=== PATIENT | female | born 1930 | race African-American/Black ===

== ENCOUNTER 2016-09-11 04:57 | Inpatient (IN) | payer MEDICARE, BC ==
[~2016-09-11] VITALS: Ht 157.5 cm; Wt 74.6 kg
[~2016-09-11 04:57] MED LIST: ACET-48 PO; AZIL1TAB3 PO; CARV40CR PO; DICL2100G TP; EZET10 PO; GABA300T26 PO; LEVO100T4 PO; ROSI4TAB28 PO; TAPE50TA9 PO; VITAMIN D PO; [UNRECOGNIZED DRUG - CODE] IV
[2016-09-11 05:22] LABS: GLUCOSE,POINT OF CARE 128 MG/DL (70-110)
[2016-09-11 05:56] LABS: BASOPHILS % (AUTO) 0.2 % (0.0-2.0); EOSINOPHILS % (AUTO) 1.1 % (1.0-6.0); HEMATOCRIT 27.5 % (36-46); HEMOGLOBIN 8.9 g/dL (12.0-16.0); LYMPHOCYTES # (AUTO) 1.3 K/uL (1.0-4.8); LYMPHOCYTES % (AUTO) 12.5 % (22.0-44.0); MEAN CORPUSCULAR HEMOGLOBIN 31.5 pg (26.0-34.0); MEAN CORPUSCULAR HGB CONC 32.4 G/dL (31.0-37.0); MEAN CORPUSCULAR VOLUME 97 fL (80-100); MONOCYTES # (AUTO) 0.7 K/uL (0.1-1.0); MONOCYTES % (AUTO) 6.8 % (2.0-9.0); NEUTROPHILS % (AUTO) 79.4 % (40.0-70.0); PLATELET COUNT (AUTO) 128 K/uL (150-450); RED BLOOD CELL COUNT(AUTO) 2.84 MIL/uL (4.00-5.20); RED CELL DISTRIBUTION WIDTH 16.7 % (11.5-14.5); WHITE BLOOD COUNT (AUTO) 10.1 K/uL (4.5-11.0)
[2016-09-11 06:01] LABS: ANION GAP 5 mmol/L (8-16); CALCIUM, TOTAL 8.5 mg/dL (8.8-10.5); CARBON DIOXIDE 30 mmol/L (22-29); CHLORIDE 108 mmol/L (98-107); GLOMERULAR FILTR. RATE CALC 37 mL/min (>60); POTASSIUM 4.8 mmol/L (3.5-5.1); SODIUM SERUM 143 mmol/L (136-145); UREA NITROGEN, BLOOD 26 mg/dL (7-18)
[2016-09-11 06:25] LABS: B-TYPE NATRIURETIC PEPTIDE 836 pg/mL (0-100)
[2016-09-11 06:26] LABS: ALANINE AMINOTRANSFERASE 24 U/L (12-78); ALBUMIN 3.1 g/dL (3.4-5.0); ASPARTATE AMINOTRANSFERASE 32 U/L (15-37); BILIRUBIN,TOTAL 0.4 mg/dL (0.1-1.0); CREATINE KINASE, TOTAL 136 U/L (26-192); TOTAL PROTEIN, SERUM 6.3 g/dL (6.4-8.2)
[2016-09-11] MEDS ORDERED: FUROSEMIDE 40 MG/4 ML VIAL IVP ONE (06:45)
[2016-09-11 08:01] LABS: INFLUENZA TYPE B NEGATIVE FOR TYPE B (NEGATIVE)
[2016-09-11] MEDS ORDERED: ACETAMINOPHEN 325 MG TABLET PO PRN ×2 (08:15→22:15)
[2016-09-11] MEDS ORDERED: ONDANSETRON HCL 4 MG/2 ML VIAL IVP PRN ×2 (08:15→22:15)
[2016-09-11] MEDS ORDERED: VITAD5000 PO (12:13)
[2016-09-11 12:26] VITALS: BP 186/79
[2016-09-11 12:37] LABS: GLUCOSE,POINT OF CARE 96 MG/DL (70-110)
[2016-09-11] MEDS ORDERED: IPRATROPIUM BROMIDE 0.5 MG/2.5 ML NEB SOLUTION NEB PRN ×2 (13:45→14:00)
[2016-09-11] MEDS ORDERED: ALBUTEROL SULFATE 2.5 MG/0.5 ML NEB SOLUTION NEB PRN ×3 (13:45→22:15)
[2016-09-11] MEDS: ALBUTEROL SULFATE 2.5 MG/0.5 ML NEB SOLUTION NEB SCH ×2 (15:18→19:42)
[2016-09-11] MEDS: IPRATROPIUM BROMIDE 0.5 MG/2.5 ML NEB SOLUTION NEB SCH ×2 (15:18→19:42)
[2016-09-11 16:15] VITALS: BP 174/61
[2016-09-11 16:54] VITALS: BP 171/61
[2016-09-11 17:18] VITALS: BP 172/83
[2016-09-11 19:24] VITALS: BP 158/60
[2016-09-11] MEDS ORDERED: ZOLPIDEM TARTRATE 5 MG TABLET PO PRN (22:15)
[2016-09-11] MEDS ORDERED: BISACODYL 10 MG RECTAL RECTAL SUPPOSITORY PR PRN (22:15)
[2016-09-11] MEDS ORDERED: MAGNESIUM HYDROXIDE SUSPENSION 30 ML UDCUP PO PRN (22:15)
[2016-09-11 23:07] LABS: GLUCOSE,POINT OF CARE 115 MG/DL (70-110)
[2016-09-11 23:35] VITALS: BP 142/48
[2016-09-12] MEDS: FUROSEMIDE 40 MG/4 ML VIAL IVP SCH ×2 (00:09→08:37)
[2016-09-12] MEDS: HEPARIN SODIUM,PORCINE 5,000 UNITS/ML VIAL SQ SCH ×4 (00:09→23:26)
[2016-09-12] MEDS: IPRATROPIUM BROMIDE 0.5 MG/2.5 ML NEB SOLUTION NEB SCH ×4 (02:15→19:28)
[2016-09-12] MEDS: ALBUTEROL SULFATE 2.5 MG/0.5 ML NEB SOLUTION NEB SCH ×2 (02:15→08:10)
[2016-09-12 04:51] VITALS: BP 160/56
[2016-09-12 05:13] LABS: CALCIUM, TOTAL 8.4 mg/dL (8.8-10.5); CREATININE 1.7 mg/dL (0.60-1.30); POTASSIUM 3.7 mmol/L (3.5-5.1)
[2016-09-12] MEDS: LEVOTHYROXINE SODIUM 100 MCG TABLET PO SCH (06:28)
[2016-09-12 07:29] VITALS: BP 158/60
[2016-09-12] MEDS: EZETIMIBE 10 MG TABLET PO SCH (08:37)
[2016-09-12] MEDS: CARVEDILOL PHOSPHATE 40 MG CR CAPSULE PO SCH (08:37)
[2016-09-12] MEDS: PANTOPRAZOLE SODIUM 40 MG DR TABLET PO SCH (08:37)
[2016-09-12] MEDS: DOCUSATE SODIUM 100 MG CAPSULE PO SCH ×2 (08:37→20:03)
[2016-09-12] MEDS: CHOLECALCIFEROL (VIT D3) 5,000 UNITS CAPSULE PO SCH (08:37)
[2016-09-12] MEDS ORDERED: [UNRECOGNIZED DRUG - OTHER] PO SCH (09:00)
[2016-09-12] MEDS ORDERED: [UNRECOGNIZED DRUG - OTHER] PO SCH (09:00)
[2016-09-12 11:40] VITALS: BP 126/51
[2016-09-12] MEDS ORDERED: INSULIN ASPART 100 UNITS/ML SQ PRN (12:30)
[2016-09-12] MEDS ORDERED: DEXTROSE 50%-WATER 25 GM/50 ML SYRINGE IVP PRN (12:30)
[2016-09-12 14:48] VITALS: BP 129/70
[2016-09-12 19:22] VITALS: BP 148/54
[2016-09-12 19:27] LABS: GLUCOSE,POINT OF CARE 97 MG/DL (70-110)
[2016-09-12 19:31] LABS: GLUCOSE,POINT OF CARE 95 MG/DL (70-110)
[2016-09-12] MEDS ORDERED: PITAVASTATIN CALCIUM 2 MG PO SCH (21:00)
[2016-09-13] VITALS (8 sets, daily range): BP systolic 116–168; BP diastolic 45–72
[2016-09-13] MEDS: IPRATROPIUM BROMIDE 0.5 MG/2.5 ML NEB SOLUTION NEB SCH ×4 (02:07→20:42)
[2016-09-13] MEDS: LEVOTHYROXINE SODIUM 100 MCG TABLET PO SCH (05:54)
[2016-09-13] MEDS ORDERED: ASPIRIN 81 MG EC TABLET PO SCH (08:00)
[2016-09-13] MEDS: EZETIMIBE 10 MG TABLET PO SCH (08:59)
[2016-09-13] MEDS: PRAVASTATIN SODIUM 10 MG TABLET PO SCH (08:59)
[2016-09-13] MEDS: PANTOPRAZOLE SODIUM 40 MG DR TABLET PO SCH (08:59)
[2016-09-13] MEDS: CHOLECALCIFEROL (VIT D3) 5,000 UNITS CAPSULE PO SCH (08:59)
[2016-09-13] MEDS: CARVEDILOL PHOSPHATE 40 MG CR CAPSULE PO SCH (08:59)
[2016-09-13] MEDS: DOCUSATE SODIUM 100 MG CAPSULE PO SCH ×2 (08:59→21:10)
[2016-09-13] MEDS: HEPARIN SODIUM,PORCINE 5,000 UNITS/ML VIAL SQ SCH ×3 (08:59→23:55)
[2016-09-13] MEDS ORDERED: FUROSEMIDE 40 MG/4 ML VIAL IVP SCH (09:00)
[2016-09-13 09:58] LABS: CALCIUM, TOTAL 8.5 mg/dL (8.8-10.5); CREATININE 2.01 mg/dL (0.60-1.30); POTASSIUM 3.5 mmol/L (3.5-5.1)
[2016-09-13] MEDS: AmLODIPine BESYLATE 2.5 MG TABLET PO SCH (10:21)
[2016-09-13] MEDS: SIMETHICONE 80 MG CHEWABLE TABLET CHEW SCH ×3 (10:21→21:10)
[2016-09-13] MEDS ORDERED: AZIL1TAB2 PO (18:20)
[2016-09-13 19:31] LABS: GLUCOSE,POINT OF CARE 108 MG/DL (70-110)
[2016-09-13 23:57] LABS: GLUCOSE,POINT OF CARE 105 MG/DL (70-110)
[2016-09-14] MEDS: IPRATROPIUM BROMIDE 0.5 MG/2.5 ML NEB SOLUTION NEB SCH ×3 (03:14→14:00)
[2016-09-14 04:40] VITALS: BP 140/52
[2016-09-14] MEDS: LEVOTHYROXINE SODIUM 100 MCG TABLET PO SCH (05:44)
[2016-09-14 07:05] LABS: BASOPHILS % (AUTO) 0.6 % (0.0-2.0); HEMATOCRIT 28.7 % (36-46); HEMOGLOBIN 9.2 g/dL (12.0-16.0); LYMPHOCYTES % (AUTO) 34.1 % (22.0-44.0); MEAN CORPUSCULAR HEMOGLOBIN 31.3 pg (26.0-34.0); MEAN CORPUSCULAR HGB CONC 32.1 G/dL (31.0-37.0); MEAN CORPUSCULAR VOLUME 98 fL (80-100); MONOCYTES # (AUTO) 0.8 K/uL (0.1-1.0); MONOCYTES % (AUTO) 14.7 % (2.0-9.0); NEUTROPHILS # (AUTO) 2.7 K/uL (1.8-7.7); NEUTROPHILS % (AUTO) 47.6 % (40.0-70.0); PLATELET COUNT (AUTO) 147 K/uL (150-450); RED BLOOD CELL COUNT(AUTO) 2.94 MIL/uL (4.00-5.20); RED CELL DISTRIBUTION WIDTH 16.1 % (11.5-14.5); WHITE BLOOD COUNT (AUTO) 5.8 K/uL (4.5-11.0)
[2016-09-14 07:28] VITALS: BP 154/68
[2016-09-14 08:45] LABS: ALBUMIN 3.2 g/dL (3.4-5.0); BILIRUBIN,TOTAL 0.4 mg/dL (0.1-1.0); CALCIUM, TOTAL 8.4 mg/dL (8.8-10.5); CREATININE 2.08 mg/dL (0.60-1.30); MAGNESIUM 1.6 mg/dL (1.80-2.40); POTASSIUM 3.9 mmol/L (3.5-5.1); TOTAL PROTEIN, SERUM 6.7 g/dL (6.4-8.2)
[2016-09-14] MEDS ORDERED: CLOPIDOGREL BISULFATE 75 MG TABLET PO SCH (09:00)
[2016-09-14] MEDS ORDERED: CHLORTHALIDONE PO SCH (09:00)
[2016-09-14] MEDS ORDERED: AZILSARTAN PO SCH (09:00)
[2016-09-14] MEDS ORDERED: FUROSEMIDE 40 MG TABLET PO SCH (09:00)
[2016-09-14] MEDS ORDERED: FUROSEMIDE 20 MG TABLET PO SCH (09:00)
[2016-09-14] MEDS: SIMETHICONE 80 MG CHEWABLE TABLET CHEW SCH (09:01)
[2016-09-14] MEDS: CARVEDILOL PHOSPHATE 40 MG CR CAPSULE PO SCH (09:01)
[2016-09-14] MEDS: HEPARIN SODIUM,PORCINE 5,000 UNITS/ML VIAL SQ SCH (09:01)
[2016-09-14] MEDS: PANTOPRAZOLE SODIUM 40 MG DR TABLET PO SCH (09:01)
[2016-09-14] MEDS: AmLODIPine BESYLATE 2.5 MG TABLET PO SCH (09:01)
[2016-09-14] MEDS: EZETIMIBE 10 MG TABLET PO SCH (09:01)
[2016-09-14] MEDS: DOCUSATE SODIUM 100 MG CAPSULE PO SCH (09:01)
[2016-09-14] MEDS: CHOLECALCIFEROL (VIT D3) 5,000 UNITS CAPSULE PO SCH (09:01)
[2016-09-14] MEDS: PRAVASTATIN SODIUM 10 MG TABLET PO SCH (09:01)
[2016-09-14 11:33] VITALS: BP 125/52
[2016-09-14] MEDS ORDERED: MAGNESIUM OXIDE 400 MG TABLET PO ONE (13:45)
[2016-09-14] MEDS ORDERED: CLOP75 PO (14:14)
[2016-09-14] MEDS ORDERED: AMLO-512 PO (14:15)
[2016-09-14] MEDS ORDERED: PRAV20TA4 PO (14:17)
[2016-09-14] MEDS ORDERED: FURO20 PO (14:17)
[2016-09-14] MEDS ORDERED: PRAV10TA39 PO (14:17)
[2016-09-14 15:16] VITALS: BP 173/90
[2016-09-15 06:47] LABS: GLUCOSE,POINT OF CARE 113 MG/DL (70-110)
[2016-09-15 14:52] LABS: GLUCOSE,POINT OF CARE 129 MG/DL (70-110)
[2016-09-15 14:52] LABS: GLUCOSE,POINT OF CARE 91 MG/DL (70-110)
[2016-09-15 14:52] LABS: GLUCOSE,POINT OF CARE 83 MG/DL (70-110)
[2016-09-20 18:12] LABS: GLUCOSE,POINT OF CARE 85 MG/DL (70-110)
[2016-09-20 18:12] LABS: GLUCOSE,POINT OF CARE 77 MG/DL (70-110)
== END 2016-09-14 15:10 | disposition home or self-care (01) | DRG 291 ==
LOC: EMS 04:59 → AHU 10:24 → 5N 17:00
PROVIDERS: ADMIT Internal Medicine; ATTEND Internal Medicine
DX: I13.0 Hypertensive heart and chronic kidney disease with heart failure and stage 1 through stage 4 chronic kidney disease, or unspecified chronic kidney disease (principal); I50.33 Acute on chronic diastolic (congestive) heart failure; E11.22 Type 2 diabetes mellitus with diabetic chronic kidney disease; D64.9 Anemia, unspecified; E78.5 Hyperlipidemia, unspecified; N18.9 Chronic kidney disease, unspecified; M19.90 Unspecified osteoarthritis, unspecified site; E78.00 Pure hypercholesterolemia, unspecified; I25.2 Old myocardial infarction; K59.00 Constipation, unspecified; E89.0 Postprocedural hypothyroidism; I25.10 Atherosclerotic heart disease of native coronary artery without angina pectoris; Z88.5 Allergy status to narcotic agent; Z88.0 Allergy status to penicillin; Z88.8 Allergy status to other drugs, medicaments and biological substances; Z79.899 Other long term (current) drug therapy; Z91.013 Allergy to seafood; Z91.018 Allergy to other foods
CPT/HCPCS: 51702; 82962; 83735; 87040; 87804; 93005; 93306; 94640; 96374; 99285; J1644; J1940

== ENCOUNTER → 2016-09-18 | Outpatient (CLI) | payer MEDICARE, BC ==
[~2016-09-18] MED LIST changes: -ACET-48 PO; +AMLO-512 PO; -AZIL1TAB3 PO; +CLOP75 PO; -EZET10 PO; +FURO20 PO; -GABA300T26 PO; +PRAV10TA39 PO; -TAPE50TA9 PO; +VITAD5000 PO; -VITAMIN D PO; -[UNRECOGNIZED DRUG - CODE] IV
[2016-09-18 10:51] LABS: CALCIUM, TOTAL 8.4 mg/dL (8.8-10.5); CREATININE 2.51 mg/dL (0.60-1.30); POTASSIUM 4.2 mmol/L (3.5-5.1)
== END | disposition home or self-care (01) ==
LOC: LABPV 09:19
PROVIDERS: ATTEND Internal Medicine
DX: N18.9 Chronic kidney disease, unspecified (principal)

== ENCOUNTER 2017-02-16 12:09 | Emergency (ER) | payer MEDICARE, BC ==
[~2017-02-16] VITALS: Ht 160 cm; Wt 66.4 kg
[2017-02-16 12:22] LABS: GLUCOSE,POINT OF CARE 92 MG/DL (70-110)
[2017-02-16] MEDS ORDERED: AZIL1TAB3 PO (12:22)
[2017-02-16] MEDS ORDERED: EZET10 PO (12:22)
[2017-02-16 12:27] VITALS: BP 175/74
== END 2017-02-16 14:06 | disposition home or self-care (01) ==
LOC: EMS 12:11
DX: M19.041 Primary osteoarthritis, right hand (principal); I10 Essential (primary) hypertension; I25.2 Old myocardial infarction; E03.9 Hypothyroidism, unspecified; E11.9 Type 2 diabetes mellitus without complications; E78.00 Pure hypercholesterolemia, unspecified; Z91.013 Allergy to seafood; Z91.018 Allergy to other foods; Z88.0 Allergy status to penicillin; Z88.5 Allergy status to narcotic agent; Z88.6 Allergy status to analgesic agent; Z88.8 Allergy status to other drugs, medicaments and biological substances
CPT/HCPCS: 82962; 99284

== ENCOUNTER → 2017-09-27 | Outpatient (CLI) | payer MEDICARE, BC ==
[~2017-09-27] VITALS: Ht 162.6 cm; Wt 64.0 kg
[~2017-09-27] MED LIST changes: -AMLO-512 PO; +AZIL1TAB3 PO; -CLOP75 PO; +EZET10 PO; -FURO20 PO; -PRAV10TA39 PO; -ROSI4TAB28 PO
[2017-09-27 11:01] VITALS: BP 224/80
== END | disposition home or self-care (01) ==
LOC: SRCNTR 10:42
PROVIDERS: ATTEND Internal Medicine Cardiovascular Disease
DX: I13.10 Hypertensive heart and chronic kidney disease without heart failure, with stage 1 through stage 4 chronic kidney disease, or unspecified chronic kidney disease (principal); N18.9 Chronic kidney disease, unspecified; E78.00 Pure hypercholesterolemia, unspecified; E03.9 Hypothyroidism, unspecified; M19.90 Unspecified osteoarthritis, unspecified site; Z82.49 Family history of ischemic heart disease and other diseases of the circulatory system; Z88.8 Allergy status to other drugs, medicaments and biological substances
CPT/HCPCS: G0463

== ENCOUNTER → 2017-10-11 | Outpatient (CLI) | payer MEDICARE, BC ==
[~2017-10-11] VITALS: Ht 162.6 cm; Wt 68.0 kg
[~2017-10-11] MED LIST changes: +DEXT1CAP3 PO; +GABA300T26 PO
[2017-10-11 09:48] VITALS: BP 193/66
== END | disposition home or self-care (01) ==
LOC: SRCNTR 09:43
PROVIDERS: ATTEND Internal Medicine Cardiovascular Disease
DX: I11.0 Hypertensive heart disease with heart failure (principal); I50.9 Heart failure, unspecified; E11.9 Type 2 diabetes mellitus without complications; E78.00 Pure hypercholesterolemia, unspecified; I25.10 Atherosclerotic heart disease of native coronary artery without angina pectoris; E03.9 Hypothyroidism, unspecified; M19.90 Unspecified osteoarthritis, unspecified site
CPT/HCPCS: G0463

== ENCOUNTER → 2017-11-29 | Outpatient (CLI) | payer MEDICARE, BC ==
[2017-11-29 12:31] LABS: BASOPHILS % (AUTO) 0.6 % (0.0-2.0); EOSINOPHILS % (AUTO) 2.4 % (1.0-6.0); HEMOGLOBIN 10.7 g/dL (12.0-16.0); LYMPHOCYTES # (AUTO) 1.4 K/uL (1.0-4.8); LYMPHOCYTES % (AUTO) 28.3 % (22.0-44.0); MEAN CORPUSCULAR HEMOGLOBIN 32.8 pg (26.0-34.0); MEAN CORPUSCULAR HGB CONC 33.6 G/dL (31.0-37.0); MEAN CORPUSCULAR VOLUME 98 fL (80-100); MONOCYTES # (AUTO) 0.4 K/uL (0.1-1.0); MONOCYTES % (AUTO) 8.2 % (2.0-9.0); NEUTROPHILS % (AUTO) 60.5 % (40.0-70.0); PLATELET COUNT (AUTO) 192 K/uL (150-450); RED BLOOD CELL COUNT(AUTO) 3.27 MIL/uL (4.00-5.20); RED CELL DISTRIBUTION WIDTH 14.2 % (11.5-14.5)
[2017-11-29 13:02] LABS: BILIRUBIN,URINE NEGATIVE (NEGATIVE); GLUCOSE, URINE (UA) NEGATIVE (NEGATIVE); KETONES,URINE NEGATIVE (NEGATIVE); LEUKOCYTE ESTERASE ,URINE MODERATE (NEGATIVE); NITRATE,URINE NEGATIVE (NEGATIVE); OCCULT BLOOD,URINE NEGATIVE (NEGATIVE); PH,URINE 5.5 (5.0-8.0); PROTEIN,URINE NEGATIVE (NEGATIVE); UROBILINOGEN,URINE 0.2 mg/dL (<=1.0)
[2017-11-29 13:05] LABS: HEMOGLOBIN A1C 6.5 % (4.5-6.2)
[2017-11-29 13:15] LABS: APPEARANCE,URINE HAZY (CLEAR)
[2017-11-29 13:16] LABS: BACTERIA,URINE Few /HPF (None Seen); RBC,URINE None Seen /HPF (0-2)
[2017-11-29 13:18] LABS: SQUAMOUS EPITHELIAL CELL,UR Few /LPF (None Seen)
[2017-11-29 13:32] LABS: ALBUMIN 3.3 g/dL (3.4-5.0); BILIRUBIN,TOTAL 0.2 mg/dL (0.1-1.0); CALCIUM, TOTAL 8.9 mg/dL (8.8-10.5); CHOL/HDL RATIO 3.4 (3.9-5.7); CREATININE 1.66 mg/dL (0.60-1.30); POTASSIUM 4.4 mmol/L (3.5-5.1); THYROID STIMULATING HORMONE 0.72 uIU/mL (0.36-3.74); TOTAL PROTEIN, SERUM 6.6 g/dL (6.4-8.2)
== END | disposition home or self-care (01) ==
LOC: LABPV 12:06
PROVIDERS: ATTEND Internal Medicine Cardiovascular Disease
DX: I10 Essential (primary) hypertension (principal); Z79.899 Other long term (current) drug therapy
CPT/HCPCS: 82271; 83036; 84443; 87086

== ENCOUNTER → 2017-11-29 | Outpatient (CLI) | payer MEDICARE, BC ==
[~2017-11-29] VITALS: Ht 162.6 cm; Wt 67.0 kg
[2017-11-29 11:24] VITALS: BP 136/57
== END | disposition home or self-care (01) ==
LOC: SRCNTR 10:55
PROVIDERS: ATTEND Internal Medicine Cardiovascular Disease
DX: Z48.812 Encounter for surgical aftercare following surgery on the circulatory system (principal); I13.10 Hypertensive heart and chronic kidney disease without heart failure, with stage 1 through stage 4 chronic kidney disease, or unspecified chronic kidney disease; N18.9 Chronic kidney disease, unspecified; E03.9 Hypothyroidism, unspecified; M19.90 Unspecified osteoarthritis, unspecified site
CPT/HCPCS: G0463

== ENCOUNTER → 2018-05-30 | Outpatient (CLI) | payer MEDICARE, BC ==
[~2018-05-30] MED LIST changes: +AMLO-511 PO; -DEXT1CAP3 PO; -GABA300T26 PO
[2018-05-30 12:50] LABS: BASOPHILS % (AUTO) 1.7 % (0.0-2.0); EOSINOPHILS % (AUTO) 2.4 % (1.0-6.0); HEMATOCRIT 30.9 % (36-46); HEMOGLOBIN 10.2 g/dL (12.0-16.0); LYMPHOCYTES # (AUTO) 1.7 K/uL (1.0-4.8); LYMPHOCYTES % (AUTO) 31.6 % (22.0-44.0); MEAN CORPUSCULAR HEMOGLOBIN 32.5 pg (26.0-34.0); MEAN CORPUSCULAR VOLUME 99 fL (80-100); MONOCYTES # (AUTO) 0.5 K/uL (0.1-1.0); MONOCYTES % (AUTO) 9.5 % (2.0-9.0); NEUTROPHILS % (AUTO) 54.8 % (40.0-70.0); PLATELET COUNT (AUTO) 189 K/uL (150-450); RED BLOOD CELL COUNT(AUTO) 3.14 MIL/uL (4.00-5.20); RED CELL DISTRIBUTION WIDTH 13.7 % (11.5-14.5)
[2018-05-30 13:00] LABS: BILIRUBIN,URINE NEGATIVE (NEGATIVE); GLUCOSE, URINE (UA) NEGATIVE (NEGATIVE); KETONES,URINE NEGATIVE (NEGATIVE); LEUKOCYTE ESTERASE ,URINE MODERATE (NEGATIVE); NITRATE,URINE NEGATIVE (NEGATIVE); OCCULT BLOOD,URINE TRACE (NEGATIVE); PH,URINE 5.5 (5.0-8.0); PROTEIN,URINE NEGATIVE (NEGATIVE); UROBILINOGEN,URINE 0.2 mg/dL (<=1.0)
[2018-05-30 13:07] LABS: APPEARANCE,URINE HAZY (CLEAR); BACTERIA,URINE None Seen /HPF (None Seen); RBC,URINE 0-2 /HPF (0-2); SQUAMOUS EPITHELIAL CELL,UR Few /LPF (None Seen)
[2018-05-30 13:07] LABS: ALBUMIN 3.6 g/dL (3.4-5.0); BILIRUBIN,TOTAL 0.3 mg/dL (0.1-1.0); CALCIUM, TOTAL 9.3 mg/dL (8.8-10.5); CHOL/HDL RATIO 2.9 (3.9-5.7); CREATININE 1.62 mg/dL (0.60-1.30); POTASSIUM 4.3 mmol/L (3.5-5.1); THYROID STIMULATING HORMONE 1.11 uIU/mL (0.36-3.74); TOTAL PROTEIN, SERUM 6.8 g/dL (6.4-8.2)
[2018-05-30 13:12] LABS: HEMOGLOBIN A1C 5.7 % (4.5-6.2)
== END | disposition home or self-care (01) ==
LOC: LABPV 09:46
PROVIDERS: ATTEND Internal Medicine Cardiovascular Disease
DX: I11.0 Hypertensive heart disease with heart failure (principal); I50.9 Heart failure, unspecified; I25.10 Atherosclerotic heart disease of native coronary artery without angina pectoris; E78.00 Pure hypercholesterolemia, unspecified; Z79.899 Other long term (current) drug therapy
CPT/HCPCS: 82271; 83036; 84443; 87086

== ENCOUNTER 2018-09-16 16:36 | Emergency (ER) | payer MEDICARE, BC ==
[~2018-09-16] VITALS: Ht 157.5 cm; Wt 63.6 kg
[2018-09-16 17:09] LABS: GLUCOSE,POINT OF CARE 97 MG/DL (70-110)
[2018-09-16] MEDS ORDERED: ACETAMINOPHEN 500 MG TABLET PO ONE (19:15)
[2018-09-16 19:53] VITALS: BP 168/68
== END 2018-09-16 19:55 | disposition home or self-care (01) ==
LOC: EMS 16:38
DX: S52.572A Other intraarticular fracture of lower end of left radius, initial encounter for closed fracture (principal); S52.612A Displaced fracture of left ulna styloid process, initial encounter for closed fracture; Z88.6 Allergy status to analgesic agent; Z88.5 Allergy status to narcotic agent; Z88.0 Allergy status to penicillin; Z91.013 Allergy to seafood; Z88.8 Allergy status to other drugs, medicaments and biological substances; Z91.018 Allergy to other foods; W01.0XXA Fall on same level from slipping, tripping and stumbling without subsequent striking against object, initial encounter; Y93.89 Activity, other specified; Y92.89 Other specified places as the place of occurrence of the external cause; Y99.8 Other external cause status

== ENCOUNTER 2018-09-22 10:15 | Day surgery (SDC) | payer MEDICARE, BC ==
[~2018-09-22] VITALS: Ht 157.5 cm; Wt 64.0 kg
[2018-09-22] MEDS ORDERED: RINGERS SOLUTION,LACTATED 1,000 ML IV ONE ×2 (10:30→10:55)
[2018-09-22] MEDS ORDERED: VANCOMYCIN HCL 1 GM/D5% WATER 200 ML IV ONE (11:00)
[2018-09-22] MEDS ORDERED: BUPIVACAINE HCL/PF 0.25% 30 ML VIAL ONE (11:00)
[2018-09-22 11:02] LABS: BASOPHILS % (AUTO) 0.8 % (0.0-2.0); EOSINOPHILS % (AUTO) 2.3 % (1.0-6.0); HEMATOCRIT 30.4 % (36-46); HEMOGLOBIN 9.8 g/dL (12.0-16.0); LYMPHOCYTES # (AUTO) 1.4 K/uL (1.0-4.8); LYMPHOCYTES % (AUTO) 26.7 % (22.0-44.0); MEAN CORPUSCULAR HGB CONC 32.2 G/dL (31.0-37.0); MEAN CORPUSCULAR VOLUME 96 fL (80-100); MONOCYTES # (AUTO) 0.6 K/uL (0.1-1.0); MONOCYTES % (AUTO) 11.2 % (2.0-9.0); NEUTROPHILS # (AUTO) 3.1 K/uL (1.8-7.7); PLATELET COUNT (AUTO) 231 K/uL (150-450); RED BLOOD CELL COUNT(AUTO) 3.16 MIL/uL (4.00-5.20)
[2018-09-22 11:12] LABS: CALCIUM, TOTAL 9.8 mg/dL (8.8-10.5); CREATININE 1.31 mg/dL (0.60-1.30); POTASSIUM 3.8 mmol/L (3.5-5.1)
[2018-09-22 11:13] LABS: INR 1.1 (0.9-1.1); PROTHROMBIN TIME 11.1 SEC (9.4-11.6)
[2018-09-22 11:18] LABS: ALBUMIN 3.1 g/dL (3.4-5.0); BILIRUBIN,TOTAL 0.4 mg/dL (0.1-1.0); TOTAL PROTEIN, SERUM 6.9 g/dL (6.4-8.2)
[2018-09-22] MEDS ORDERED: DEXT1CAP3 PO (15:26)
[2018-09-22] MEDS ORDERED: ISOR40SR PO (15:26)
[2018-09-22] MEDS ORDERED: GABA300T26 PO (15:26)
== END 2018-09-22 15:15 | disposition home or self-care (01) ==
LOC: SURGERY 10:15
PROVIDERS: ATTEND Orthopaedic Surgery
DX: S62.102A Fracture of unspecified carpal bone, left wrist, initial encounter for closed fracture (principal); Z53.8 Procedure and treatment not carried out for other reasons; I25.2 Old myocardial infarction; I12.9 Hypertensive chronic kidney disease with stage 1 through stage 4 chronic kidney disease, or unspecified chronic kidney disease; N18.9 Chronic kidney disease, unspecified; K21.9 Gastro-esophageal reflux disease without esophagitis; X58.XXXA Exposure to other specified factors, initial encounter; Y93.89 Activity, other specified; Y92.89 Other specified places as the place of occurrence of the external cause; Y99.8 Other external cause status
CPT/HCPCS: 36415; 80053; 85025; 85610; 85730; 93005; 93017; 93306; J3370; J7120; J3490

== ENCOUNTER → 2018-09-23 | Outpatient (CLI) | payer MEDICARE, BC ==
[~2018-09-23] MED LIST changes: +DEXT1CAP3 PO; +GABA300T26 PO; +ISOR40SR PO; +REGADENOSON 0.4 MG/5 ML PF SYRINGE IVP ONE; +SESTAMIBI TC99M/UD ISOTOPE 1 EA INJ INJ ONE; +[UNRECOGNIZED DRUG - CODE] PO
[2018-09-23 11:25] VITALS: BP 208/67
[2018-09-23 12:47] VITALS: BP 173/59
== END | disposition home or self-care (01) ==
LOC: CARDMN 10:58
PROVIDERS: ATTEND Internal Medicine Interventional Cardiology
DX: Z01.818 Encounter for other preprocedural examination (principal); R94.31 Abnormal electrocardiogram [ECG] [EKG]
CPT/HCPCS: 78452; A9500; J2785

== ENCOUNTER 2018-10-03 05:37 | Day surgery (SDC) | payer MEDICARE, BC ==
[~2018-10-03] VITALS: Ht 157.5 cm; Wt 65.5 kg
[~2018-10-03 05:37] MED LIST changes: -REGADENOSON 0.4 MG/5 ML PF SYRINGE IVP ONE; +RINGERS SOLUTION,LACTATED 1,000 ML IV ONE; -SESTAMIBI TC99M/UD ISOTOPE 1 EA INJ INJ ONE; +VANCOMYCIN HCL 1 GM/D5% WATER 200 ML IV ONE; -[UNRECOGNIZED DRUG - CODE] PO
[2018-10-03] MEDS ORDERED: FentaNYL CITRATE-PF 250 MCG/5 ML VIAL IVP ONE (05:38)
[2018-10-03] MEDS ORDERED: PHENYLEPHRINE HCL 10 MG/ML VIAL IVP ONE (05:38)
[2018-10-03] MEDS ORDERED: PROPOFOL 1% 20 ML VIAL IVP ONE (05:38)
[2018-10-03] MEDS ORDERED: ROCURONIUM BROMIDE 10 MG/ML 5 ML VIAL IVP ONE (05:38)
[2018-10-03] MEDS ORDERED: GLYCOPYRROLATE 0.2 MG/ML VIAL IM ONE (05:38)
[2018-10-03] MEDS ORDERED: LABETALOL HCL 5 MG/ML 20 ML VIAL IVP ONE (05:38)
[2018-10-03] MEDS ORDERED: DEXAMETHASONE SOD PHOS 4 MG/ML VIAL IVP ONE (05:38)
[2018-10-03] MEDS ORDERED: NEOSTIGMINE METHYLSULFATE 1 MG/ML 10 ML VIAL IVP ONE (05:38)
[2018-10-03] MEDS ORDERED: ONDANSETRON HCL 4 MG/2 ML VIAL IVP ONE (05:38)
[2018-10-03] MEDS ORDERED: LIDOCAINE/PF 2% 5 ML VIAL IM ONE (05:38)
[2018-10-03] MEDS ORDERED: 0.9% SODIUM CHLORIDE 10 ML VIAL IVP ONE (05:38)
[2018-10-03] MEDS ORDERED: RINGERS SOLUTION,LACTATED 1,000 ML IV ONE ×2 (05:46→06:00)
[2018-10-03 06:23] LABS: BASOPHILS % (AUTO) 0.5 % (0.0-2.0); EOSINOPHILS % (AUTO) 2.3 % (1.0-6.0); HEMATOCRIT 30.6 % (36-46); HEMOGLOBIN 9.9 g/dL (12.0-16.0); LYMPHOCYTES # (AUTO) 2.3 K/uL (1.0-4.8); LYMPHOCYTES % (AUTO) 40.6 % (22.0-44.0); MEAN CORPUSCULAR HEMOGLOBIN 30.9 pg (26.0-34.0); MEAN CORPUSCULAR HGB CONC 32.4 G/dL (31.0-37.0); MEAN CORPUSCULAR VOLUME 96 fL (80-100); MONOCYTES # (AUTO) 0.7 K/uL (0.1-1.0); MONOCYTES % (AUTO) 11.8 % (2.0-9.0); NEUTROPHILS # (AUTO) 2.5 K/uL (1.8-7.7); NEUTROPHILS % (AUTO) 44.8 % (40.0-70.0); PLATELET COUNT (AUTO) 345 K/uL (150-450); RED CELL DISTRIBUTION WIDTH 13.8 % (11.5-14.5)
[2018-10-03] MEDS ORDERED: [UNRECOGNIZED DRUG - CODE] PO (06:40)
[2018-10-03] MEDS ORDERED: MUPIROCIN CALCIUM 2% 22 GM OINTMENT ONE (06:49)
[2018-10-03] MEDS ORDERED: BUPIVACAINE HCL/PF 0.25% 30 ML VIAL ONE (06:50)
[2018-10-03] MEDS ORDERED: SODIUM CL IRRIG SOLN BAG 3,000 ML IRRIG ONE (06:50)
[2018-10-03] MEDS ORDERED: VANCOMYCIN HCL 1 GM/VIAL ONE (06:53)
[2018-10-03] MEDS ORDERED: MICROFIBRILLAR COLLAGEN 1 GM PACKAGE TP ONE (06:53)
[2018-10-03] MEDS ORDERED: VANCOMYCIN HCL 1 GM/D5% WATER 200 ML IV ONE (07:00)
[2018-10-03] MEDS ORDERED: BUPIVACAINE LIPOSOME/PF 1.3%-13.3MG/ML SUSPENSION 10 ML VIAL INJ ONE (07:00)
[2018-10-03 07:19] LABS: GLUCOMETER DEV NAME(LOC) SDS.; GLUCOSE,POINT OF CARE 72 MG/DL (70-110)
[2018-10-03] MEDS ORDERED: ONDANSETRON HCL 4 MG/2 ML VIAL ONE (08:45)
[2018-10-03] MEDS ORDERED: ONDANSETRON HCL 4 MG/2 ML VIAL IVP STA (09:05)
[2018-10-03] MEDS ORDERED: METOPROLOL TARTRATE 5 MG/5 ML VIAL IVP STA (09:24)
== END 2018-10-03 11:25 | disposition home or self-care (01) ==
LOC: SURGERY 05:37
PROVIDERS: ATTEND Orthopaedic Surgery
DX: S52.572A Other intraarticular fracture of lower end of left radius, initial encounter for closed fracture (principal); G56.02 Carpal tunnel syndrome, left upper limb; E11.22 Type 2 diabetes mellitus with diabetic chronic kidney disease; I12.9 Hypertensive chronic kidney disease with stage 1 through stage 4 chronic kidney disease, or unspecified chronic kidney disease; Y93.89 Activity, other specified; X58.XXXA Exposure to other specified factors, initial encounter; M19.90 Unspecified osteoarthritis, unspecified site; Y99.8 Other external cause status; Y92.89 Other specified places as the place of occurrence of the external cause; Z90.710 Acquired absence of both cervix and uterus; Z98.890 Other specified postprocedural states; Z98.49 Cataract extraction status, unspecified eye
CPT/HCPCS: 25609; 36415; 64721; 82962; 85025; 93005; C1713 ×2; C1716; J1100; J2370; J2405; J2704; J3010; J3370 ×2; J3490 ×6; J7120

== ENCOUNTER → 2018-10-21 | Outpatient (CLI) | payer MEDICARE, BC ==
[~2018-10-21] VITALS: Ht 162.6 cm; Wt 64.0 kg
[~2018-10-21] MED LIST changes: +AZIL1TAB2 PO; +CHOL50004 PO; -DICL2100G TP; -ISOR40SR PO; -RINGERS SOLUTION,LACTATED 1,000 ML IV ONE; -VANCOMYCIN HCL 1 GM/D5% WATER 200 ML IV ONE; +[UNRECOGNIZED DRUG - CODE] PO
[2018-10-21 10:18] VITALS: BP 162/60
== END | disposition home or self-care (01) ==
LOC: SRCNTR 10:00
PROVIDERS: ATTEND Internal Medicine Cardiovascular Disease
DX: I12.9 Hypertensive chronic kidney disease with stage 1 through stage 4 chronic kidney disease, or unspecified chronic kidney disease (principal); N18.9 Chronic kidney disease, unspecified; E78.5 Hyperlipidemia, unspecified; M19.90 Unspecified osteoarthritis, unspecified site; I25.2 Old myocardial infarction
CPT/HCPCS: G0463